=== PATIENT | female | born 1955 | race Caucasian/White ===

== ENCOUNTER 2016-10-10 14:43 | Emergency (ER) | payer OTHER ==
[~2016-10-10] VITALS: Ht 165.1 cm; Wt 63.5 kg
--- NOTE | 2016-10-10 15:21 | ED PSYCHIATRIC COMPLAINT ---
History of Present Illness General Chief Complaint: ETOH/Drug Related Complaint Stated Complaint: REQ ETOH DETOX, CP Source: patient, old records Exam Limitations: intoxication Vital Signs & Intake/Output Vital Signs & Intake/Output Vital Signs Date Time Temp Pulse Resp B/P Pulse O2 O2 Flow FiO2 Ox Delivery Rate 10/11 1145 97.9 79 18 138/76 02/ 1143 97.9 79 18 138/76 97 Room Air / 1050 98.9 92 20 142/89 02/ 1050 98.9 92 20 142/89 97 Room Air / 0955 99.9 104 18 159/86 93 Room Air / 0728 100.9 112 22 168/96 02/ 0612 100.9 110 18 166/93 92 Room Air / 0407 99.0 105 18 172/90 95 Room Air / 0406 99.0 105 18 172/90 02/05 0130 98.9 90 18 130/59 95 /04 2315 97.9 85 18 128/69 95 Room Air 10/10 2000 98.9 86 18 120/82 96 02/04 1733 99.0 94 16 122/67 96 Nasal 2.0L Cannula 10/10 1630 98.3 105 14 151/92 94 Room Air 10/10 1502 97.9 97 20 128/67 96 Room Air ED Intake and Output 10/11 0000 10/10 1200 Intake Total 0 Output Total Balance 0 Intake, Oral 0 Patient 140 lb Weight Allergies Coded Allergies: NO KNOWN ALLERGIES (04/01/12) Triage Note: PT TO ED STATING "I JUST WANT TO ". PT DOES NOT HAVE A PLAN. DENIES HI. PT STATES SHE WAS IN REHAB FOR 45 DAYS. WAS RELEASED September AND HAS BEEN DRINKING EVERY DAY SINCE. ADMITS TO DRINKING 1/2 QUART VODKA TODAY. DENIES DRUG USE. PT CRYING STATING "ARE YOU GOING TO HELP ME?" STATES SHE DRINKS 1/2 PINT TO 1 QUART OF VODKA EVERY DAY. PT TAKEN TO ROOM 19 FOR EVAL. Triage Nurses Notes Reviewed? yes Onset: Abrupt Duration: week(s):, constant Timing: recent history Severity: moderate Severity Numbers: 10 Associated Symptoms: denies HPI: This is a 61-year-old female who presents to the emergency room for evaluation requesting alcohol detox, and stating that "I just want to ". The patient states that she was recently in a rehabilitation facility for alcohol abuse and drinks approximately a half a quart of vodka daily. She denies any other drug use. No abdominal pain no chest pain contrary to triage the patient denies any pain at this time no shortness of breath dizziness lightheadedness. On arrival the patient is agitated and intoxicated and aggressive with staff history is limited secondary to patient behavior (PREET DONOVAN) Past History Travel History Traveled to [place] past 21 day No Medical History Any Pertinent Medical History? see below for history Cardiovascular: angina, hypertension Endocrine: BORDERLINE DM Surgical History Surgical History: non-contributory Psychosocial History What is your primary language Maori Tobacco Use: Current Daily Use Daily Tobacco Use Amount/Type: => 5 Cigarettes daily ETOH Use: alcoholic Illicit Drug Use: denies illicit drug use Family History Hx Contributory? No (PREET DONOVAN) Review of Systems Review of Systems Constitutional: Reports: see HPI. All Other Systems: Reviewed and Negative Comments Review of systems: Limited secondary to intoxication and aggressive behavior See HPI, All other systems negative. Constitutional, no chills no fever, no malaise HEENT: No visual changes no sore throat no congestion Cardiovascular: No chest pain , no palpitation , Skin, no rashes, no change in skin Respiratory: No dyspnea no cough no sputum GI: No nausea no vomiting, no diarrhea, : No dysuria No hematuria, no frequency, no discharge Muscle skeletal: joint pain, no joint swelling, no back pain, no neck pain, Neurologic: no headache Psych: No stress no anxiety no depression,. Heme/endocrine: No bruising no bleeding Immunology: No lymphadenopathy (PREET DONOVAN) Physical Exam Physical Exam General Appearance: awake, intoxicated Neurological/Psychiatric: no motor/sensory deficits, awake, INTOXCIATED Comments: Well-developed well-nourished intoxicated female in no acute distress HEENT: Normal EENT exam; PERRL, EOMI, HEAD is atraumatic. moist mucous membranes. Neck: Supple,, normal range of motion Back: Full range of motion Cardiovascular: Regular rate and rhythms no murmurs rubs Respiratory: Chest nontender.There were no bony deformities, no asymmetry. No respiratory distress. Patient speaking in full complete sentences. Breath sounds clear to auscultation bilaterally: NO W/R/R Abdomen: Soft, nontender nondistended, no appreciable organomegaly. Normal bowel sounds. No rebound/guarding, No appreciable enlargement of the abdominal aorta, No ascites. Extremity: No edema, full range of motion of extremities, normal and equal pulses bilaterally, 5 out of 5 strength noted to bilateral upper and lower extremities Neuro: Alert oriented x3, motor sensory normal, There were no obvious focal neurologic abnormalities. Skin: No appreciable rash on exposed skin, skin is warm and dry. Psych: Mood and affect is normal, memory and judgment is normal. SAD PERSONS SAD PERSONS Response Value Age <19 or >45 years? yes 1 Excessive Ethanol/Drug Use? yes 1 Total 2 SAD PERSONS Done? yes (SUSIE ROGEL,PREET) Progress Differential Diagnosis: drug intoxication, drug overdose, electrolyte abnormality, depression, ami, costochondriaits, pancreatitis Plan of Care: Orders Procedure Date/time Status URINE DRUGS OF ABUSE 10/11 08 Complete CASE MANAGEMENT CONSULT 10/11 0754 Active TROPONIN LEVEL 10/10 2014 Complete EKG 10/10 2014 Active Restraint- Discontinue 10/10 1925 Active Add-on Test (ER Only) 10/10 1642 Active LIPASE 10/10 1619 Complete AMYLASE 10/10 1619 Complete ED CRISIS PSYCH CONSULT 10/10 1610 Active Restraint- Behavioral (Initial 10/10 1524 Active Continuous Observation Monitor 10/10 1524 Active Telemetry/Visitor Services Technician 10/10 1515 Active URINE DRUG SCREEN FOR ER ONLY 10/10 1515 Active TROPONIN LEVEL 10/10 1515 Complete ETHANOL 10/10 1515 Complete COMPREHENSIVE METABOLIC PANEL 10/10 1515 Complete CBC WITHOUT DIFFERENTIAL 10/10 1515 Complete Patient Safety Monitor 10/10 1514 Active Restraint- Behavioral (Initial 10/10 1514 Active EKG 10/10 1444 Active Laboratory Tests 10/11/16 0839: Urine Opiates Screen < 100.00, Methadone Screen 49, Barbiturate Screen < 60, Ur Phencyclidine Scrn < 6.00, Amphetamines Screen < 100, U Benzodiazepines Scrn < 85, Urine Cocaine Screen < 50, Urine Cannabis Screen 38.00 10/10/16 2020: Troponin I 0.01 10/10/16 1619: Anion Gap 19 H, Estimated GFR > 60, BUN/Creatinine Ratio 15.0, Glucose 80, Calcium 9.1, Total Bilirubin 0.8, AST 130 H, ALT 109 H, Alkaline Phosphatase 103, Troponin I < 0.01, Total Protein 7.5, Albumin 4.6, Globulin 2.9, Albumin/ Globulin Ratio 1.6, Amylase < 30 L, Lipase 66, CBC w Diff NO MAN DIFF REQ, RBC 5.21, MCV 82.7, MCH 27.8, RDW 14.0, MPV 8.0, Gran % 67.4, Lymphocytes % 24.8, Monocytes % 6.8, Eosinophils % 0.3, Basophils % 0.7, Absolute Granulocytes 6.4, Absolute Lymphocytes 2.3, Absolute Monocytes 0.6, Absolute Eosinophils 0, Absolute Basophils 0.1, PUBS MCHC 33.6, Serum Alcohol 285.0 Labs ordered old records reviewed patient aggressive with staff pushing them prior to myself entering the room as the patient was refusing to take off her belongings including her necklaces around her neck and clothing.. I attempted to Descalate the patient and explained to her what must be done given the patient has made comments wishing self-harm. i Unsuccessfully after multiple attempts at which time the patient began to attempt to spit in the face of staff. Case was discussed with Dr. Jimenez, patient was medicated with Haldol 5, Ativan 2mg benadryl 50 IV, restraints were ordered due to aggressive behavior patient spitting at staff and attempting to bite staff 1930 PT calm cooperative, restraints d/c, pt denies cp. case d/w and signed out to dr qureshi at 2300 pending crisis eval in am (PREET DONOVAN) 10/11/2016 7:52:42 AM Patient signed out to me by Dr. Qureshi at change of shift. Pending case management and crisis evaluation. 8AM Gene from case management informed of [facility] patient in ED. 10:20 am Patient sleeping comfortably. 10/11/2016 1:03:02 PM Patient was seen and cleared by psychiatry. She is not suicidal. She was watched for signs of alcohol withdrawal. Highest CIWA score reached a high of 10. She was given Ativan 1 dose at 7:30 and has not required any since then. She is feeling min minimally tremulous but her CIWA is 0. She just got out of [facility] after 45 day rehabilitation and will follow-up with the intensive outpatient programs. (KIMBERLEE JULY GOODSON) Initial ED EKG: normal sinus at 90, there are nonspecific ST segment changes noted change from previous Prior EKG: changed (12/2009) Repeat EKG: unchanged Rhythm Strip: normal sinus rhythm Hand-Off Endorsed To: MIGUEL ÁNGEL QURESHI MD Endorsed Time: 2300 Pending: consult (crisis) (PREET DONOVAN) Hand-Off Endorsed To: JULY JIMENEZ MD Endorsed Time: 0700 Pending: consult (case management) (MIGUEL ÁNGEL QURESHI MD) Departure Departure Condition: Stable Referrals: MOHINI JOHNSON MD (PCP/Family) Departure Forms: Customer Survey General Discharge Information (PREET DONOVAN) Departure Time of Disposition: 1302 Disposition: HOME OR SELF CARE Clinical Impression Primary Impression: Alcohol abuse Secondary Impressions: Suicidal ideation Additional Instructions: Please follow up with the list of detox facilities listed or with the intensive outpatient program. PA/HAND BULLDOZER Co-Sign Statement Statement: ED Attending supervision documentation- [X] I saw and evaluated the patient. I have also reviewed all the pertinent lab results and diagnostic results. I agree with the findings and the plan of care as documented in the PA's/HAND BULLDOZER's documentation. [X] I have reviewed the ED Record and agree with the PA's/HAND BULLDOZER's documentation. [] Additions or exceptions (if any) to the PAs/HAND BULLDOZER's note and plan are summarized below: [] (JULY JIMENEZ MD) PA/HAND BULLDOZER Co-Sign Statement Statement: ED Attending supervision documentation- x I saw and evaluated the patient. I have also reviewed all the pertinent lab results and diagnostic results. I agree with the findings and the plan of care as documented in the PA's/HAND BULLDOZER's documentation. [] I have reviewed the ED Record and agree with the PA's/HAND BULLDOZER's documentation. [] Additions or exceptions (if any) to the PAs/HAND BULLDOZER's note and plan are summarized below: [] (MIGUEL ÁNGEL QURESHI MD) Critical Care Note Critical Care Note Critical Care Time: 30-74 min (JULY JIMENEZ MD)
[2016-10-10 16:26] LABS: ABSOLUTE BASOPHIL COUNT 0.1 /CUMM (0.0-0.2); ABSOLUTE EOSINOPHIL COUNT 0 /CUMM (0.0-0.7); ABSOLUTE GRANULOCYTE CT 6.4 /CUMM (1.4-6.5); ABSOLUTE LYMPH COUNT 2.3 /CUMM (1.2-3.4); ABSOLUTE MONOCYTE COUNT 0.6 /CUMM (0.10-0.60); BASOPHIL % 0.7 % (0.0-2.0); EOSINOPHIL % 0.3 % (0-5); GRANULOCYTE % 67.4 % (42.2-75.2); HEMATOCRIT 43.1 % (37-47); MEAN CORPUSCULAR HGB 27.8 PG (27.0-31.0); MEAN CORPUSCULAR HGB CONC 33.6 G/DL (33.0-37.0); MEAN CORPUSCULAR VOLUME 82.7 FL (81.0-99.0); PLATELET COUNT 157 /CUMM (130-400); RED BLOOD CELL CT 5.21 /CUMM (4.20-5.40); WHITE BLOOD CELL COUNT 9.5 /CUMM (4.8-10.8)
--- NOTE | 2016-10-11 09:03 | ED PSY CRISIS COLLATERAL NOTE ---
Collateral Note Collateral Note Family/Inform/Samuel Contacts: This clinician contacted daughter Jennie Taylor who reported her mother recently was discharge from [facility] on a voluntary admission. She reports her mother was discharge on 09/30/16 and started drinking daily. She reports her mother is currently intreatment in [place], [place]. Jennie reports her mother gets very violent when drinking Alcohol.
--- NOTE | 2016-10-11 10:24 | ED PSYCH CRISIS CONSULTATION ---
Crisis Consult Basic Assessment Date of Consult: 10/11/16 Responsible Person/Accompanied By: Self Insurance Authorization: Insurance #1: Insurance name: ANTONI REBOLLEDO Phone number: Policy number: [id number] Group number: Authorization number: ED Provider: Patient's ED Provider: PREET DONOVAN Primary Care Physician: Patient's PCP: MOHINI JOHNSON MD PCP's Phone Number: Current Psychiatrist: Dr. Marina Patrick Chief Complaint: ETOH/Drug Related Complaint Patient's Quote: " I am feeling better" Present Illness: Pt is a 61 year old female brought to the emergency room by her daughter. The daughter reports picking up her mother intoxicated and taking her to the emergency room. Pt presented with suicidal ideation " I just want to " and intoxicated with a BAL 285 at 1619. This clinician evaluated the Pt who presented a little drowsy, oriented to time, place and person. She was cooperative with the interview, dressed in hospital clothing. Pt denied any depressed mood, or feeling sad. She reported feeling tired from drinking and wants to get sober. Pt denied any homicidal or suicidal ideation. Pt reports recently being discharge from [facility] for Alcohol Abuse treatment on 09/30/2015 and starting drinking vodka daily. She resports having a discharge plan to follow up with [facility] on [address] [facility] in [place], [place]. Pt reports being treated Campral for Alcohol cravings and Vistaril for Anxiety. She reports being recently arrested for DUI in July2016. Patient's Address: [address] [place] [address] Other Who Do You Live With? Daughter (Jennie Serrano) Family/Informants Interviewed: Daughter Jennie Serrano [phone] Allergies - Coded Allergies: NO KNOWN ALLERGIES (04/01/12) Laboratory Results: Laboratory Tests 10/11/16 0839: Urine Opiates Screen < 100.00, Methadone Screen 49, Barbiturate Screen < 60, Ur Phencyclidine Scrn < 6.00, Amphetamines Screen < 100, U Benzodiazepines Scrn < 85, Urine Cocaine Screen < 50, Urine Cannabis Screen 38.00 10/10/16 2020: Troponin I 0.01 10/10/16 1619: Anion Gap 19 H, Estimated GFR > 60, BUN/Creatinine Ratio 15.0, Glucose 80, Calcium 9.1, Total Bilirubin 0.8, AST 130 H, ALT 109 H, Alkaline Phosphatase 103, Troponin I < 0.01, Total Protein 7.5, Albumin 4.6, Globulin 2.9, Albumin/ Globulin Ratio 1.6, Amylase < 30 L, Lipase 66, CBC w Diff NO MAN DIFF REQ, RBC 5.21, MCV 82.7, MCH 27.8, RDW 14.0, MPV 8.0, Gran % 67.4, Lymphocytes % 24.8, Monocytes % 6.8, Eosinophils % 0.3, Basophils % 0.7, Absolute Granulocytes 6.4, Absolute Lymphocytes 2.3, Absolute Monocytes 0.6, Absolute Eosinophils 0, Absolute Basophils 0.1, PUBS MCHC 33.6, Serum Alcohol 285.0 Past History Past Medical History Cardiovascular: angina, hypertension Psychiatric: alcohol dependence, anxiety, substance abuse Endocrine: BORDERLINE DM Past Surgical History Surgical History: non-contributory Psychosocial History Strengths/Capabilities: Supportive Daughter Psychiatric Treatment History Psych Treatment Psychiatric Treatment No Inpatient Treatment No Outpatient Treatment No Substance Use/Abuse History Drug Use/Abuse Substances Used/Abused Yes Substance Used/Abused Alcohol First Use 11 years Old Last Used 10/10/2016 How much used/taken 1/2 quart of Vodka How often daily for (1) week For how long 1 wk Route of use oral Substance Abuse Treatment Substance Abuse Treatment Past Substance Abuse TX Yes Inpatient Treatment Yes Outpatient Treatment Yes Location of Treatment [facility] Reason for Treatment Alcohol Abuse Dates of Treatment 08/2016 to 09/30/2016 Response to Treatment poor relapse drinking for (1) week straight. Current Mental Status Mental Status Orientation: Person, Place, Situation Affect: Flat Speech: Soft Neuro-vegetative: Appetite Decreased, Energy Decreased Appearance Appearance- Dress/Hygiene: Dressed in hospital clothing Behaviors Thought Process: WNL Thought Content: WNL Memory: WNL Insight: Fair SI/HI Risk Assessment Past Suicidal Ideation/Attempts Yes (only when intoxicated + SI) Current Suicidal Ideation/Att No Past Homicidal Ideation/Att: No Current Homicidal Ideation/Attempts No Degree of Intent: None Risk Factors: substance abuse Lethality Ratin (mild) PTSD Checklist PTSD Done? patient declined ED Management Sitter: Yes Restraints: Yes (restrained on 10/11/16) DSM5/PS Stressors/Medical Prob Diagnosis' (DSM 5, Stressors, Medical): Alcohol Use Servere F10.20 Current GAF: 35 Comments: Pt presents to the E.R. intoxicated with postive suicide ideation. Pt evaluated denies suicide ideation, denies feeling sad and depressed. Departure Disposition Psych Medical Clearance Date: 10/11/16 Medically Cleared at: 829 Time Started: 829 Time Ended: 929 Psychiatrist Consulted: Dr. Marina Patrick Date Disposition Established: 10/11/16 Time Disposition Established: 929 Plan for Disposition - Modality: IOP Facility: Patient to Arrange Follow-up Appt Date: 10/12/16 Follow-Up Appt Time: 1000 Contact: [facility] Rationale for Disposition: Pt recently discharged from [facility] on 09/30/2016 with follow up to [facility]. Pt will follow up with [facility]. Pt denies and suicidal ideation or homicidal ideation . Referrals MOHINI JOHNSON MD (PCP/Family)
[2016-10-11 13:39] VITALS: BP 132/78
== END 2016-10-11 13:40 ==
LOC: ERH 14:43
PROVIDERS: Physician Assistant Medical
DX: R45.851 Suicidal ideations (principal); F10.10 Alcohol abuse, uncomplicated
CPT/HCPCS: 80307; 93005; 93010; 96372; 99291; G0463; G0480; J1200; J1630